=== PATIENT | female | born 1960 | race Caucasian/White ===

== ENCOUNTER 2020-08-20 12:58 | Day surgery (SDC) | payer OTHER ==
[~2020-08-20] VITALS: Ht 162.6 cm; Wt 74.8 kg
[~2020-08-20 12:58] MED LIST: CALCIUM500 M1 PO; CAPTOPRIL HCTZ PO; CLOBETASOL 0.0560 G1; LISINOPRIL-HCT1 EAC1 PO; MULTIVITAMINS1 EAC7 PO; PRINIVIL20 MG PO; TRAZODONE HCL100 MG PO
[2020-08-20] MEDS ORDERED: VITAMIN D310 MC4 PO (13:23)
--- NOTE | 2020-08-20 15:10 | NUR ---
08/20/20 1510 Crissy Mcintosh 144 PT ARRIVED IN PACU SLEEPY WITH NO C/O'S. ABD SOFT AND PASSING FLATUS. 1500 DR AT BEDSIDE TALKING WITH PT. 1510 RESTING. REU.
--- NOTE | 2020-08-22 12:08 | OR ---
[facility] [address] [place], [place] [address] Signed DATE OF OPERATION: 08/20/2020 SURGEON: Gisselle Sigala MD DATE OF PROCEDURE: 08/20/2020 PREOPERATIVE DIAGNOSIS: Colon screening. POSTOPERATIVE DIAGNOSIS: Normal colon to the cecum with intubation of ileum also normal. PROCEDURE: Total colonoscopy to cecum with intubation of ileum. ANESTHESIA: Intravenous sedation, fentanyl 150 mcg and Versed 5 mg. 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 Miles. She underwent colonoscopy approximately 12 years ago which was said to be negative. She has no family history of colon cancer and is symptom-free. She is admitted to undergo surveillance screening colonoscopy, understands the risks of bleeding, infection, and perforation. FINDINGS: The prep was quite excellent. Complete colonoscopy was undertaken of the cecum. Intubation of the ileum was accomplished as well. The colon was quite markedly redundant. There was no sign of polyps, diverticular formation, colitis, or cancer. DESCRIPTION OF PROCEDURE: The patient was brought to the endoscopy suite and placed in lateral decubitus position, given intravenous sedation to the point of slurred speech and nystagmus. Digital rectal examination was normal. An Olympus video colonoscope was passed in the rectum and manipulated throughout the colon ultimately intubating the cecum itself. Without much problem, the ileum was able to be intubated itself also. The mucosa appeared normal. The scope was withdrawn from that point. Examination throughout showed no sign of abnormality specifically no Electronically Signed By: GISSELLE SIGALA MD 08/22/20 1208 PATIENT NAME: GARRY MORALES OPERATIVE REPORT DATE OF : 56 REPORT #: [id number] PHYSICIAN: GISSELLE SIGALA MD PCP: MAURY GILLIAM REPORT IS CONFIDENTIAL AND NOT TO BE RELEASED WITHOUT AUTHORIZATION [facility] [address] [place] [id number] Signed polyps, diverticular formation, colitis, or cancer. Of special note, the colon was very redundant and passage to the cecum was challenging on that basis, but was accomplished with patience and abdominal wall stabilization and so on. Retroflexed view of the rectum was normal as well. The scope was removed and the patient was taken to the recovery room in good condition. CONCLUDING DIAGNOSIS: Normal colon and terminal ileum. PLAN: Recommend repeat colonoscopy in 10 years, sooner if clinically indicated. She will return to the ongoing care of JOHN PAUL Elder, as well as Dr. Miles MD DEMIAN Olmedo/LESLI /[id number] cc: JOHN PAUL Elder MD Copies: MAURY GILLIAM PATRICIA J MD ~ Electronically Signed By: GISSELLE SIGALA MD 08/22/20 1208 PATIENT NAME: GARRY MORALES OPERATIVE REPORT DATE OF : 56 REPORT #: [id number] PHYSICIAN: GISSELLE SIGALA MD PCP: MAURY GILLIAM REPORT IS CONFIDENTIAL AND NOT TO BE RELEASED WITHOUT AUTHORIZATION
== END 2020-08-20 15:30 | disposition home or self-care (01) ==
LOC: OPS 12:58 → DS 12:58 → OPS 14:00 → DS 14:00 → OPS 15:30
PROVIDERS: ATTEND Surgery
PROC: 0DJD8ZZ Inspection of Lower Intestinal Tract, Via Natural or Artificial Opening Endoscopic (ICD-10-PCS; principal; 2020-08-20 14:00)
DX: Z12.11 Encounter for screening for malignant neoplasm of colon (principal); I10 Essential (primary) hypertension; Z78.0 Asymptomatic menopausal state; Z98.1 Arthrodesis status; Z88.5 Allergy status to narcotic agent; Z88.1 Allergy status to other antibiotic agents; Z79.899 Other long term (current) drug therapy
CPT/HCPCS: 99153; G0500; J2250; J3010; J7121